=== PATIENT | male | born 1935 | race Caucasian/White ===

== ENCOUNTER 2016-08-05 07:51 | Observation (INO) | payer MEDICARE, OTHER ==
[2016-07-26 08:24] LABS: HEMATOCRIT 41.7 % (40.0-51.0); HEMOGLOBIN 13.8 g/dL (13.6-17.8)
--- NOTE | ~2016-08-05 | PREOPHP ---
PreOp History and Physical [facility] [address] [facility] [place]. [address] NAME: ANNY MCCURDY : 37 STATUS : ADM Jess PAT#: [id number] AGE: 81 ADM/REG DATE : 08/05/16 MR#: [id number] REPORT SERV DATE: 08/05/16 DICTATED BY: STEPHEN KNOX DATE: 08/05/16 REPORT STATUS : Draft TRANSCRIBED BY: MODL DATE: 08/05/16 CHIEF COMPLAINT: Back pain and leg pain bilateral. HISTORY OF PRESENT ILLNESS: This is an 81-year-old gentleman with back pain, bilateral leg pain has been gradually increasing for several months. The patient has classic neurogenic claudication symptoms. He has been through time, medication, injections. He did not try therapy because increased activities hurt his back. The patient had plain x-rays revealing marked disk degeneration, spondylosis of the lumbar spine. MRI shows central canal stenosis, some lateral recess stenosis of a severe degree L2-3, L3-4, L4-5, it is much worse at L4-5 and L3-4 would be moderate to severe L2-3 to be moderate. He has some foraminal stenosis, but I think the vast majority of this compression and symptomatic could be central and lateral recess. He is brought to surgery for a decompressive unilateral hemilaminectomy, foraminotomy, and partial facetectomy with the bilateral decompression through unilateral approach at each of the levels. No instrumentation. No fusion, it is just a simple decompression. Prior to surgery, risks, benefits, alternatives, and expectations have been explained. Consent form has been signed. Also please note, because of the complexity of surgery and the need to identify correct level of surgery intraoperatively as well as desire to carry out the safest and most precise dissection, we feel intraoperative navigation is mandatory. PAST MEDICAL HISTORY: Gastroesophageal reflux disease. He also has osteoarthritis. PAST SURGICAL HISTORY: Prostatectomy, colonoscopy, partial colectomy, cataract extraction, lens implant, shoulders reconstructive surgery, rotator cuff repair, trigger finger release of the hand and kidney stone removal. CURRENT MEDICATIONS: Nexium. ALLERGIES: TRIMETHOPRIM. SOCIAL HISTORY: He is . Retired. Never uses tobacco or alcohol. FAMILY HISTORY: His father and mother of old age. Did not have any major medical problems he is aware of. REVIEW OF SYSTEMS: Negative. PHYSICAL EXAMINATION: VITAL SIGNS: He is 5 feet 9 inches, 162 pounds, BMI is 23.9. GENERAL: He is alert, cooperative, well oriented. Ambulates independently. HEENT: Exam is grossly normal. LUNGS: Clear to auscultation. HEART: Rate is regular and rhythmic. ABDOMEN: Soft with good bowel sounds. No peritoneal signs are noted. MUSCULOSKELETAL: The spine itself has no gross deformities. No step-offs in the midline. PreOp History and Physical [address] [address] NAME: ANNY MCCURDY : 37 STATUS : ADM Jess PAT#: [id number] AGE: 81 ADM/REG DATE : 08/05/16 MR#: [id number] REPORT SERV DATE: 08/05/16 DICTATED BY: STEPHEN KNOX DATE: 08/05/16 REPORT STATUS : Draft TRANSCRIBED BY: JONATHON DATE: 08/05/16 There is no paraspinous muscle tenderness or spasm. Valery signs are negative. JAIRO signs are negative. Straight leg raising signs are negative. Femoral nerve stretch test is negative. Motor strength is normal except the tibialis anterior and EHL are 4/5, all others are 5/5. Patellar reflex 1/4. Achilles reflexes just a trace. There is no sensory deficit. Toes are downgoing. No ankle clonus found. No evidence of myelopathy noted. Orthopedically, he has no pain with moving the hips, knees, or ankles. There are good pulses in all four extremities. No abnormal skin lesions found. ASSESSMENT AND RECOMMENDATIONS: As listed above. /JONATHON Stephen Knox D.O. / [id number] CC: Duong Poe M.D.
--- NOTE | ~2016-08-05 | OP ---
Record Of Operation [facility] [address] [place]. [address] NAME: ANNY MCCURDY : 37 STATUS : ADM Jess PAT#: [id number] AGE: 81 ADM/REG DATE : 08/05/16 MR#: [id number] REPORT SERV DATE: 08/05/16 DICTATED BY: STEPHEN KNOX DATE: 08/05/16 REPORT STATUS : Draft TRANSCRIBED BY: MODL DATE: 08/05/16 DATE OF PROCEDURE: PREOPERATIVE DIAGNOSIS: Severe spinal stenosis, L2-3, L3-4, L4-5. POSTOPERATIVE DIAGNOSIS: Severe spinal stenosis, L2-3, L3-4, L4-5. PROCEDURE: Microscopic navigation assisted left-sided hemilaminotomy, foraminotomy, partial facetectomy, bilateral decompression through a unilateral approach. FORTUNE TELLER: Varinder Watson. ANESTHESIA: General. ESTIMATED BLOOD LOSS: 25 mL. INDICATIONS FOR SURGERY: Indications for surgery and risks were explained. They are listed in the last office note as well the history and physical. See that for detail. DESCRIPTION OF PROCEDURE: Antibiotic prophylaxis was given. Neurophysiology monitoring leads were inserted. The patient was brought to the operative suite. General anesthetic including endotracheal intubation was administered. The patient was placed prone on a Harry spine frame and bony prominences were carefully padded. Thoracolumbar spine was scrubbed with Hibiclens solution, DuraPrep was painted, and sterile drapes were applied. Because of the complexity of surgery and the need to identify correct level of surgery intraoperatively as well as desire to carry out the safest most precise dissection, I feel that intraoperative navigation is mandatory. After a small stab wound was carried out, a percutaneous pin was passed to the iliac crest with navigational frame attached. Intraoperative CT scan with O-arm was obtained. CT information used to register the navigational system. With navigational assistance, I identified the L2-3, L3-4, and L4-5 levels. At the L3-4 level, I carried out a 2.5 cm skin incision. I mobilized the skin distally. I placed a blunt navigated probe through the fascia and muscle at L4-5. Muscle dilators were inserted, followed by placement of a tubular retractor attached to an arm mount table. The microscope was used and sterilely draped throughout the remainder of the procedure. With navigational assistance, I determined the amount of lamina of L4 that I needed to remove in order to reach the cephalad boundary of the disk space. I also determined the amount of superior lamina of L5 that I needed to remove as well as the amount of medial facet joint to reach the lateral aspect of the thecal sac. I used a 3 mm fady bur. I removed approximately 60% of the lamina of L4, 20% of superior lamina of L5. There was severe ligamentum flavum hypertrophy as well as facet hypertrophy. I debrided the facet joint with a fady bur and Kerrison rongeurs. I removed all of the hypertrophied Record Of Operation [place] [id number] [facility] [place]. [address] NAME: ANNY MCCURDY : 37 STATUS : ADM Jess PAT#: [id number] AGE: 81 ADM/REG DATE : 08/05/16 MR#: [id number] REPORT SERV DATE: 08/05/16 DICTATED BY: STEPHEN KNOX DATE: 08/05/16 REPORT STATUS : Draft TRANSCRIBED BY: JONATHON DATE: 08/05/16 ligamentum flavum. I then turned the patient and the bed as a unit. I worked across the posterior aspect of the thecal sac and I removed the anterior aspect of the lamina of L4. I then removed the hypertrophied ligamentum flavum on the opposite side at L4-5 removing also the medial portion of the facet joint. This gave a bilateral decompression through unilateral approach. Wounds were irrigated. The disk space was inspected. We did find a small disk herniation at L4-5 and a small diskectomy was carried out. The retractor was removed. I then moved to L3-4, placed a blunt navigated probe through the fascia and muscle, and docked over L3-4. I placed a tubular retractor and carried out the same identical hemilaminotomy, foraminotomy, partial medial facetectomy, and bilateral decompression through unilateral approach. The retractor was removed. Finally, I moved to L2-3 where I repeated the same identical steps. At each level, there was a bilateral decompression through unilateral approach. Wounds were irrigated. The retractor was removed. Each of the three fascial openings were closed with a single interrupted #1 Vicryl suture, subcutaneous tissue closed with 2-0 Vicryl sutures, 2-0 vertical mattress nylon suture used for skin closure. Sterile dressings applied. The patient awakened, extubated, taken to recovery room in satisfactory condition having tolerated procedure well. Sponge, needle, and instrument counts were correct. No intraoperative complications noted. AMANDEEP/JONATHON Stephen Knox D.O. / [id number] CC: Stephen Knox D.O.
[~2016-08-05 07:51] MED LIST: ALEVE220 MG PO; PRILO PO; PRILOSEC
[2016-08-06] MEDS ORDERED: METHOC500B PO (09:40)
[2016-08-06] MEDS ORDERED: NORCO1 TA1 PO (09:40)
== END 2016-08-06 10:43 | disposition home or self-care (01) ==
LOC: SDC 07:51 → SDC/OF 14:46 → 3SO 16:06
PROVIDERS: Orthopaedic Surgery Orthopaedic Surgery of the Spine
PROC: 0SB20ZZ Excision of Lumbar Vertebral Disc, Open Approach (ICD-10-PCS; 2016-08-05)
PROC: 01NB0ZZ Release Lumbar Nerve, Open Approach (ICD-10-PCS; principal; 2016-08-05 09:45)
DX: M48.06 Spinal stenosis, lumbar region (principal); K21.9 Gastro-esophageal reflux disease without esophagitis; I10 Essential (primary) hypertension; H91.90 Unspecified hearing loss, unspecified ear; Z90.49 Acquired absence of other specified parts of digestive tract; Z85.46 Personal history of malignant neoplasm of prostate; Z87.442 Personal history of urinary calculi; Z79.891 Long term (current) use of opiate analgesic; Z79.899 Other long term (current) drug therapy; Z98.890 Other specified postprocedural states
CPT/HCPCS: 85014; 85018; 88304; 88311; 93005; 96374; 96376; 97161-GP; A9270-GY; G0378; G8978-CH-GP; G8979-CH-GP; G8980-CH-GP; J0690; J2250; J2274; J2405; J2710; J3010